=== PATIENT | male | born 1950 | race Caucasian/White ===

== ENCOUNTER 2016-04-27 11:11 | Emergency (ER) ==
[2016-04-27] MEDS ORDERED: NS 250 ML IV ONE (12:01)
--- NOTE | 2016-04-27 12:02 | PROVIDER DOCUMENTATION ---
HPI-General Adult - General Chief Complaint: Fall Stated Complaint: POSS REACTION TO MED Time Seen by Provider: 04/27/16 11:47 Source: patient, family Unable to obtain history due to:: altered Allergies/Adverse Reactions: Patient Allergies Allergy/AdvReac Type Severity Reaction Status Date / Time acetaminophen [From Rumson] Allergy Severe ANAPHYLAXIS Verified 04/27/16 12:05 hydrocodone bitartrate * Allergy Severe ANAPHYLAXIS Verified 04/27/16 12:05 [From Rumson] sulfamethoxazole Allergy Severe swelling;wh Verified 04/27/16 12:05 [From Bactrim] elps trimethoprim [From Bactrim] Allergy Severe swelling;wh Verified 04/27/16 12:05 elps cephalexin monohydrate * Allergy Intermediate SWELLING Verified 04/27/16 12:05 [From Keflex] clindamycin Allergy Unknown Unknown Verified 04/27/16 12:05 Home Medications: Amitriptyline [Elavil] 50 mg PO HS 01/05/14 Gabapentin [Neurontin] 300 mg PO HS 01/05/14 Insulin Glargine,Hum.rec.anlog [Lantus Solostar] 40 unit SQ QHS 01/28/15 Aspirin [Adult Low Dose Aspirin EC] 81 mg PO QAM 02/09/15 Furosemide 40 mg PO QAM 05/29/15 Ticagrelor [Brilinta] 60 mg PO BID 09/16/15 Levothyroxine [Synthroid] 50 microgm PO QAM 03/07/16 Omeprazole [Prilosec] 20 mg PO DAILY@0700 03/07/16 Insulin Lispro [Humalog Kwikpen U-100] 15 unit SQ TID 04/11/16 ATORVAstatin [Lipitor] 40 mg PO QHS 04/27/16 - History of Present Illness -Gen Adult Nature of Presenting Problems: Patient is a 66 y/o M that presents to the ER after having falling at dialysis today. He finished treatment and was advised he fell out and BP dropped. Patient's reports that since Apr.21( placed on Hydrocodone for arthritis by ) patient has had fall and has been having AMS. She reports he has difficulty concentrating. Pain Radiation: reports: no radiation Quality of Pain: reports: none Severity: reports: mild, moderate Onset/Duration: reports: abrupt, just prior to arrival Timing: reports: gone now Context/Activities at Onset: reports: recent trauma history Modifying Factors: improves with: nothing Associated Symptoms: reports: fatigue, joint pain, malaise, weakness, trouble walking, other (AMS). denies: chest pain, constipation, diaphoresis, dizziness , fever/chills, genitourinary problems, heartburn, nausea Recently seen or treated by another doctor?: Yes Review of Systems - Adult - REVIEW OF SYSTEMS - ADULT ROS:: limited per condition Constitutional: reports: fatique. denies: chills, fever Eyes: denies: decreased vision, blurred vision, double vision Ears, Nose, Mouth & Throat: denies: ear discharge, ear pain, sinus problem, throat pain, throat swelling Cardiovascular: denies: chest pain, palpitations, syncope Respiratory: denies: cough, shortness of breath, wheezing Gastrointestinal: denies: abdominal pain, diarrhea, nausea, vomiting Genitourinary: reports: no symptoms reported Musculoskeletal: reports: joint pain. denies: back pain, neck pain Integumentary: reports: no symptoms reported Neurological: reports: other (ams). denies: dizziness/vertigo, headache/ migraines Psychiatric: reports: no symptoms reported Endocrine: reports: no symptoms reported Hematologic/Lymphatic: reports: no symptoms reported Allergic/Immunologic: reports: no symptoms reported All Other Systems: Reviewed and Negative Past History - Adult - PAST MEDICAL HISTORY-ADULT Review of Records: reports: Old Records Reviewed, Nursing Assessment Review, Medications Reviewed Cardiovascular: reports: cardiac disease (cardiac disorder), CHF, HTN, hyperlipidemia, AL Gastrointestinal: reports: cancer (colon), GERD Genitourinary: reports: dialysis, ESRD, kidney disease (ESRD on dialysis M/W/F) Endocrine/Immune: reports: Diabetes, other (diabetic neuropathy) - PRIOR SURGERIES/PROCEDURES Surgical/Procedure History: reports: CABG, cholecystectomy, indwelling device ( colostomy, port a cath), orthopedic (extremity) (R leg Sx, 2 toes amputated from the L leg) - IMMUNIZATION STATUS Childhood Immunizations: See Nurse Assessment Flu Vaccine: See Nurse Assessment - FAMILY HISTORY Family History: reviewed, not pertinent - SOCIAL HISTORY Smoking: quit greater than 1 year, cigarettes Living Situation: family Physical Exam-General - PHYSICAL EXAM-ADULT Initial Vital Signs Reviewed: Yes - CONSTITUTIONAL General Appearance: no apparent distress, lethargic - EYES Eyes: PERRL/EOMI, pink conjunctivae - HEAD, EARS, NOSE, MOUTH & THROAT HENMT: normocephalic/atraumatic, moist mucous membranes, normal ENT inspection - NECK Neck: full range of motion, normal inspection. negative: lymphadenopathy - RESPIRATORY Respiratory: lungs clear, normal breath sounds, no respiratory distress, no accessory muscle use - CARDIOVASCULAR Cardiovascular: regular rate, rhythm, no edema, no murmur - GASTROINTESTINAL (ABDOMEN) Abdominal Exam: normal bowel sounds, non tender, soft, no organomegaly, no pulsatile mass, other (colostomy bag noted) - MUSCULOSKELETAL Back Exam: no CVA tenderness, no vertebral tenderness Extremity: no pedal edema, normal capillary refill, pelvis stable, other (right BKA). negative: calf tenderness, deformity, pedal edema - SKIN Integumentary: normal color, warm/dry - NEUROLOGIC Neurologic: other (abnormal finger to nose). negative: aphasia, facial droop, focal weakness, motor weakness, sensory deficit - PSYCHIATRIC Psych/Mental Status: other (awake, answers questions but has hard time following certain comands. has abnormal movements of arm) Progress - PLAN OF CARE/RESULTS Progress/Plan/Lab Results: plan of care-labs, ct head, xray Vital Signs Temp Pulse Resp BP Pulse Ox 04/27/16 11:19 97.6 F 70 18 91/53 100 acetaminophen [From Rumson] Allergy (Severe, Verified 04/27/16 12:05) ANAPHYLAXIS hydrocodone bitartrate * [From Rumson] Allergy (Severe, Verified 04/27/16 12:05) ANAPHYLAXIS sulfamethoxazole [From Bactrim] Allergy (Severe, Verified 04/27/16 12:05) swelling;whelps trimethoprim [From Bactrim] Allergy (Severe, Verified 04/27/16 12:05) swelling;whelps cephalexin monohydrate * [From Keflex] Allergy (Intermediate, Verified 04/27/16 12:05) SWELLING clindamycin Allergy (Unknown, Verified 04/27/16 12:05) Unknown Amitriptyline [Elavil] 50 mg PO HS 01/05/14 Gabapentin [Neurontin] 300 mg PO HS 01/05/14 Insulin Glargine,Hum.rec.anlog [Lantus Solostar] 40 unit SQ QHS 01/28/15 Aspirin [Adult Low Dose Aspirin EC] 81 mg PO QAM 02/09/15 Furosemide 40 mg PO QAM 05/29/15 Carvedilol [Coreg] 3.125 mg PO BID #60 tablet 06/03/15 Ticagrelor [Brilinta] 60 mg PO BID 09/16/15 Levothyroxine [Synthroid] 50 microgm PO QAM 03/07/16 Omeprazole [Prilosec] 20 mg PO DAILY@0700 03/07/16 Insulin Lispro [Humalog Kwikpen U-100] 15 unit SQ TID 04/11/16 ATORVAstatin [Lipitor] 40 mg PO QHS 04/27/16 Ketorolac [Toradol] 10 mg PO Q6H PRN PRN #15 tablet 04/27/16 Laboratory 04/27/16 04/27/16 11:35 11:35 WBC 5.56 RBC 4.24 L Hgb 13.5 L Hct 39.7 L MCV 93.6 MCH 31.8 H MCHC 34.0 RDW Std Deviation 14.9 H Plt Count 178 MPV 9.8 Neut % (Auto) 67.6 Lymph % (Auto) 14.0 L [place] % (Auto) 16.9 H Eos % (Auto) 1.3 Baso % (Auto) 0.2 Neut # (Auto) 3.76 Lymph # (Auto) 0.78 L [place] # (Auto) 0.94 H Eos # (Auto) 0.07 Baso # (Auto) 0.01 Sodium 129 L Potassium 3.6 Chloride 89 L Carbon Dioxide 20 L Anion Gap 20 BUN 15 Creatinine 2.8 H Estimated GFR/1.73 m2 23 BUN/Creatinine Ratio 5 Glucose 74 Calculated Osmolality 258 Calcium 8.8 Total Bilirubin 0.91 AST 51 H ALT 36 Alkaline Phosphatase 355 H Total Protein 8.0 Albumin 3.7 Globulin 4.3 Albumin/Globulin Ratio 0.9 Orders Category Date Time Status CHEST-2 VIEWS [RAD] Stat Exams 04/27/16 11:59 Taken HEAD W/O CONTRAST [CT] Stat Exams 04/27/16 11:56 Draft CBC WITH ELECTRONIC DIFF [HEME] Stat Lab 04/27/16 11:35 Completed CMP [COMPREHENSIVE METABOLIC PANEL] [CHEM] Stat Lab 04/27/16 11:35 Completed URINALYSIS W/POSS RFLX CULT [URINALYSIS] Stat Lab 04/27/16 11:58 Uncollected 0.9% Sodium Chloride Inj [Ns] 250 ml Med 04/27/16 12:01 Discontinued IV 999 mls/hr pt will be d/c home f/u with , pt will stop hydrocodone, was ok with patient being d/c home pt was clinically stable - CT/MRI 1 CT Study: Head Impression: Abnormal CT Results: no hemorrhage, microvascular changes Departure - Departure Time of Disposition Order: 13:11 DIAGNOSIS: Weakness, Fall, Chronic kidney disease, stage 5, Adverse effects of medication Disposition: HOME 01 Certified Medical Emergency: Emergent Condition: Stable Additional Instructions: stop Hydrocodone f/u with dr. howard this week ED Follow Up Instructions: You have been treated by a care provider in the Emergency Department. These instructions are being provided to you so you can have an understanding of how to care for yourself upon discharge. Upon discharge from the Emergency Department, you are responsible for making arrangements for follow-up care by a physician of your choice. Take all prescribed medications as directed. Return to the Emergency Department immediately for any new or worsening symptoms. You may call the Physician Referral phone number at [phone] to obtain a list of Physicians who are taking new patients. Prescriptions: Ketorolac [Toradol] 10 mg PO Q6H PRN PRN #15 tablet PRN Reason: Pain Referrals: Akosua Howard MD [Primary Care Provider] - Call for Appoint. 1-2days Attestation - Scribe Verification/Attestation Scribe:: Jerry Valladares Acting as Scribe for:: Oni Foster Scribe documention review:: This chart was documented by a scribe and accurately reflects the service the provider performed and the decisions made by the provider. Physician Attestation - Physician Attestation I, the provider, attest to the following statement:: Oni Foster Physician documentation Attestation:: This documentation recorded by the scribe accurately reflects the service I personally performed and the decisions made by me.
[2016-04-27 12:10] LABS: MANUAL DIFF NEEDED? NO
[2016-04-27 12:22] LABS: BASO% 0.2 % (0.0-0.8); EOS# 0.07 X1000 (0.0-0.7); EOS% 1.3 % (0.0-10.0); HEMATOCRIT 39.7 % (42.0-52.0); HEMOGLOBIN 13.5 g/dL (14.0-18.0); LYMPH# 0.78 X1000 (1.2-3.4); MCH 31.8 PG (27-31); MCV 93.6 FL (81-99); MONO# 0.94 X1000 (0.11-0.59); MONO% 16.9 % (1.7-9.3); MPV 9.8 FL (7.4-10.4); NEUT% 67.6 % (42.2-75.2); PLT 178 X1000 (130-400); RBC 4.24 XMIL (4.7-6.1)
[2016-04-27 12:41] LABS: ALBUMIN 3.7 g/dL (3.5-5.0); CALCIUM 8.8 mg/dL (8.8-10.2); POTASSIUM 3.6 mmol/L (3.5-5.1); TOTAL BILIRUBIN 0.91 mg/dL (0.20-1.00)
--- NOTE | 2016-04-27 12:54 | Diag Imaging Result Document ---
PROCEDURE NAME: HEAD W/O CONTRAST - 04/27/2016 CT BRAIN WITHOUT: Dose reduction protocol. FINDINGS: No parenchymal hemorrhage. No epidural or subdural hematoma. No subarachnoid hemorrhage. No hydrocephalus. There are chronic microvascular ischemic changes. The patient has a false right eye. No sinus opacification. IMPRESSION: 1. No hemorrhage. 2. Chronic microvascular ischemic changes. A preliminary report was given at 1233 PM.
[2016-04-27 13:16] VITALS: BP 111/64
--- NOTE | 2016-04-27 13:51 | Diag Imaging Result Document ---
PROCEDURE NAME: CHEST-2 VIEWS - 04/27/2016 AP AND LATERAL CHEST: FINDINGS: The inspiration is less optimal than on 04/10/2016. There is a double lumen dialysis catheter in the right internal jugular with its tip in the right atrium. There may be a mild degree of interstitial pulmonary edema. IMPRESSION: Minimal pulmonary edema.
== END 2016-04-27 13:34 | disposition home or self-care (01) ==
LOC: ED 11:11
DX: T40.2X5A Adverse effect of other opioids, initial encounter (principal); R53.1 Weakness; I12.0 Hypertensive chronic kidney disease with stage 5 chronic kidney disease or end stage renal disease; N18.5 Chronic kidney disease, stage 5; R53.83 Other fatigue; R41.82 Altered mental status, unspecified; I50.9 Heart failure, unspecified; I25.2 Old myocardial infarction; Z79.899 Other long term (current) drug therapy; M25.50 Pain in unspecified joint; E78.5 Hyperlipidemia, unspecified; R53.81 Other malaise; Z99.2 Dependence on renal dialysis; Z85.038 Personal history of other malignant neoplasm of large intestine; K21.9 Gastro-esophageal reflux disease without esophagitis; E13.40 Other specified diabetes mellitus with diabetic neuropathy, unspecified; Z95.1 Presence of aortocoronary bypass graft; Z93.3 Colostomy status; Z89.422 Acquired absence of other left toe(s); Z87.891 Personal history of nicotine dependence; R29.6 Repeated falls; W19.XXXA Unspecified fall, initial encounter; Z79.82 Long term (current) use of aspirin; Z79.4 Long term (current) use of insulin
CPT/HCPCS: 70450; 71020; 80053; 85025; J7040

== ENCOUNTER 2016-06-13 15:38 | Inpatient (IN) ==
[~2016-06-13 15:38] MED LIST: ATROPINE SYRINGE IV ONE
[2016-06-13] MEDS ORDERED: ATROPINE SYRINGE ONE (15:40)
[2016-06-13] MEDS ORDERED: NS 2,000 ML ONE (15:40)
[2016-06-13 16:08] LABS: MANUAL DIFF NEEDED? NO
[2016-06-13 16:13] LABS: BASO% 0.4 % (0.0-0.8); EOS# 0.04 X1000 (0.0-0.7); EOS% 0.7 % (0.0-10.0); HEMATOCRIT 37.1 % (42.0-52.0); HEMOGLOBIN 12.7 g/dL (14.0-18.0); LYMPH# 0.78 X1000 (1.2-3.4); LYMPH% 14.3 % (20.5-51.1); MCHC 34.2 g/dL (33-37); MCV 93.5 FL (81-99); MONO# 0.88 X1000 (0.11-0.59); MONO% 16.1 % (1.7-9.3); MPV 11.4 FL (7.4-10.4); NEUT% 68.5 % (42.2-75.2); PLT 110 X1000 (130-400); RBC 3.97 XMIL (4.7-6.1)
--- NOTE | 2016-06-13 16:34 | PROVIDER DOCUMENTATION ---
HPI-Cardiac General <Jose Edouard - Last Filed: 06/13/16 20:14> - General Source: patient, EMS - History of Present Illness-Cardiac Quality of Pain: reports: none Severity in ED: moderate Onset/Duration: unsure, just prior to arrival Timing: still present Associated Symptoms: reports: fatigue, shortness of breath, weakness. denies: abdominal pain, back pain, diaphoresis, dizziness, nausea, swelling/lump in chest, syncope (near-syncope), vomiting <Haim Nielsen - Last Filed: 06/13/16 20:44> - General Chief Complaint: B/P Problems Stated Complaint: low bp Time Seen by Provider: 06/13/16 16:02 Allergies/Adverse Reactions: Patient Allergies Allergy/AdvReac Type Severity Reaction Status Date / Time acetaminophen [From [facility]] Allergy Severe ANAPHYLAXIS Verified 05/31/16 20:17 hydrocodone bitartrate * Allergy Severe ANAPHYLAXIS Verified 05/31/16 20:17 [From [place]] sulfamethoxazole Allergy Severe swelling;wh Verified 05/31/16 20:17 [From Bactrim] elps trimethoprim [From Bactrim] Allergy Severe swelling;wh Verified 05/31/16 20:17 elps cephalexin monohydrate * Allergy Intermediate SWELLING Verified 05/31/16 20:17 [From Keflex] clindamycin Allergy Unknown Unknown Verified 05/31/16 20:17 Home Medications: Home Medication List Medication Instructions Recorded Confirmed Last Taken Type Amitriptyline [Elavil] 50 mg PO HS 01/05/14 06/13/16 06/12/16 19:00 History 50 MG Gabapentin [Neurontin] 300 mg PO 01/05/14 06/13/16 06/12/16 19:00 History 300 MG Aspirin [Adult Low Dose Aspirin EC] 81 mg PO QAM 02/09/15 06/13/16 06/13/16 10: 00 History 81 MG Carvedilol [Coreg] 3.125 mg PO BID #60 tablet 06/03/15 06/13/16 06/13/16 10:00 Rx 3.125 MG Ticagrelor [Brilinta] 60 mg PO BID 09/16/15 06/13/16 06/13/16 10:00 History 60 MG Levothyroxine [Synthroid] 50 microgm PO QAM 03/07/16 06/13/16 06/13/16 10:00 History 50 MICROGM Omeprazole [Prilosec] 20 mg PO DAILY@0700 03/07/16 06/13/16 06/13/16 10:00 History 20 MG ATORVAstatin [Lipitor] 40 mg PO QHS 04/27/16 06/13/16 06/12/16 19:00 History 40 MG Colchicine [Colcrys] 0.6 mg PO DAILY #30 tablet 05/08/16 06/13/16 06/13/16 10: 00 Rx 0.6 MG Tramadol HCl [Ultram] 50 mg PO BID 05/31/16 06/13/16 06/13/16 10:00 History 50 MG Insulin Glargine,Hum.rec.anlog 30 unit SQ QHS #0 06/08/16 06/13/16 06/12/16 19: 00 Rx [Lantus Solostar] 30 UNIT Insulin Lispro [Humalog Kwikpen 12 unit SQ TID #0 06/08/16 06/13/16 06/13/16 10 :00 Rx U-100] 12 UNIT Metoclopramide [Reglan Liquid] 10 mg PO TID AC #90 udc 06/08/16 06/13/16 10:00 Rx 10 MG - History of Present Illness-Cardiac Nature of Presenting Problem: Pt is a 66 yom who presents to ER via EMS from [facility]. Per EMS , pt was reported to be hypotensive, bradycardic, and severely lethargic at the retirement. On arrival, pt was still hypotensive (89/57), bradycardic, and lethargic. (Haim Nielsen) Review of Systems - Adult - REVIEW OF SYSTEMS - ADULT Constitutional: reports: fatique. denies: chills, fever, night sweats Eyes: reports: no symptoms reported Ears, Nose, Mouth & Throat: reports: no symptoms reported Cardiovascular: reports: irregular heart rate (bradycardic), other (hypotensive (89/57)). denies: chest pain, edema, heart murmur, orthopnea, palpitations, poor circulation, PND, syncope (near syncope) Respiratory: denies: chronic cough, cough, dyspnea on exertion, excessive sputum production, hemoptysis, pleurisy, shortness of breath, wheezing Gastrointestinal: denies: abdominal pain, constipation, diarrhea, nausea, poor appetite, vomiting Genitourinary: reports: no symptoms reported Musculoskeletal: reports: no symptoms reported Integumentary: reports: no symptoms reported Neurological: reports: no symptoms reported Psychiatric: reports: no symptoms reported Endocrine: reports: no symptoms reported Hematologic/Lymphatic: reports: no symptoms reported Allergic/Immunologic: reports: no symptoms reported All Other Systems: Reviewed and Negative <Haim Nielsen - Last Filed: 06/13/16 20:44> Past History - Adult - PAST MEDICAL HISTORY-ADULT Review of Records: reports: Nursing Assessment Review, Medications Reviewed Cardiovascular: reports: cardiac disease (cardiac disorder), CHF, HTN, hyperlipidemia, AK Gastrointestinal: reports: cancer (colon), GERD Genitourinary: reports: dialysis, ESRD, kidney disease (ESRD on dialysis M/W/F) Endocrine/Immune: reports: Diabetes, other (diabetic neuropathy) - PRIOR SURGERIES/PROCEDURES Surgical/Procedure History: reports: CABG, cholecystectomy, indwelling device ( colostomy, port a cath), orthopedic (extremity) (R leg Sx, 2 toes amputated from the L leg) - IMMUNIZATION STATUS Childhood Immunizations: See Nurse Assessment Flu Vaccine: See Nurse Assessment <Haim Nielsen - Last Filed: 06/13/16 20:44> Physical Exam-General - PHYSICAL EXAM-ADULT Initial Vital Signs Reviewed: Yes - CONSTITUTIONAL General Appearance: appears well, alert, moderate distress, lethargic, slow to respond, obtunded. negative: cachetic, obese, combative - RESPIRATORY Respiratory: chest non-tender, lungs clear, normal breath sounds. negative: respiratory distress, decreased breath sounds, accessory muscle use, wheezing - CARDIOVASCULAR Cardiovascular: normal peripheral pulses, bradycardia, other (hypotensive (89/57 )). negative: tachycardia - MUSCULOSKELETAL Extremity: other (amputated RLE below the knee). negative: swelling, tenderness - NEUROLOGIC Neurologic: grossly normal, no motor/sensory deficits - PSYCHIATRIC Psych/Mental Status: normal thought content, normal thought process, oriented x 3, depressed affect <Haim Nielsen - Last Filed: 06/13/16 20:44> Progress <Jose Edouard - Last Filed: 06/13/16 20:14> - REASSESSMENT Reassessment #1 Time Reassessed: 18:32 Status: other (Dr. Edouard reassessed pt and family reports that pt is DNR. Pt will be admitted.) Reassessment #2 Time Reassessed: 19:58 Status: other (Family is at bedside and requested consult with Dr. Edouard as to what pt's current POC situation is.) - EKG 1 Time of EKG reading by physician:: 16:12 EKG Read and Signed by:: Harish Menchaca EKG Interpretation (*Must complete 3 of following elements*): Abnormal ( Nonspecific intraventricular block; Cannot rule out Anterior infarct, age undetermined; T wave abnornmality, consider lateral ischemia) Rate: 51 Rhythm: Wide QRS rhythm - CT/MRI 1 CT Study: Head Impression: See EMR Report CT Results: NAD - CONSULTS/PCP/HOSPITALIST Notification #1 *Consult/PCP/Hospitalist*: Dr. Chin (Hospitalist) Time Discussed: 20:44 Consult Disposition: Admit - CHANGE OF SHIFT REPORT (ED Provider) Report Given and Care Transferred to:: Dr. Edouard Time of Transfer: 18:00 Items Pending: Ultrasound Results <Haim Nielsen - Last Filed: 06/13/16 20:44> - PLAN OF CARE/RESULTS Progress/Plan/Lab Results: POC: IV fluids/labs 1710: Pt's labs came back and indicated elevated liver enzymes; Ultrasound paged for abnormal liver functions. 1755: Dr. Menchaca ordered another litre of fluid for pt because pt's B/P (87/63) . POC transferred to Dr. Edouard. 1832: Pt's family reports that pt is DNR. Dr. Edouard paged hospitalist for admit. Vital Signs - 24 hr 06/13/16 06/13/16 06/13/16 15:52 16:00 16:29 Temperature 97.2 F L Pulse Rate 55 L 54 L 53 L Respiratory 14 13 14 Rate Blood Pressure 85/64 89/57 93/52 O2 Sat by Pulse 96 97 97 Oximetry 06/13/16 06/13/16 06/13/16 17:00 18:00 18:39 Temperature Pulse Rate 51 L 50 L 49 L Respiratory 20 20 20 Rate Blood Pressure 78/48 89/55 84/50 O2 Sat by Pulse 96 92 L 94 L Oximetry 06/13/16 19:42 Temperature Pulse Rate 49 L Respiratory 16 Rate Blood Pressure 92/58 O2 Sat by Pulse 94 L Oximetry Orders Category Date Time Status Cardiac Monitoring DIRECTED Care 06/13/16 16:23 Active Finger Stick Blood Sugar (ED) DIRECTED Care 06/13/16 16:23 Active Claros Cath Insertion ORDERED Care 06/13/16 17:43 Active Oxygen Therapy- ED Nursing DIRECTED Care 06/13/16 16:23 Active Saline Loc NOW Care 06/13/16 16:23 Active HEAD W/O CONTRAST [CT] Stat Exams 06/13/16 16:29 Draft US ABDOMEN-COMPLETE [US] Stat Exams 06/13/16 17:09 Ordered ABG [RESP] Routine Lab 06/13/16 16:40 Completed ALCOHOL BLOOD Stat Lab 06/13/16 15:45 Completed CBC WITH DIFF [HEME] Stat Lab 06/13/16 15:45 Completed CK PROFILE [SP CHEM] Stat Lab 06/13/16 15:45 Completed CK PROFILE [SP CHEM] Stat Lab 06/13/16 18:20 Completed COMPREHENSIVE METABOLIC PANEL [CHEM] Stat Lab 06/13/16 15:45 Completed LACTATE, PLASMA [CHEM] Stat Lab 06/13/16 15:45 Completed PROTIME WITH INR [COAG] Stat Lab 06/13/16 15:45 Completed PTT [COAG] Stat Lab 06/13/16 15:45 Completed TROPONIN T Stat Lab 06/13/16 15:45 Completed TROPONIN T Stat Lab 06/13/16 18:20 Completed URINALYSIS W/POSS RFLX CULT [URINALYSIS] Stat Lab 06/13/16 17:50 Completed URINE CULTURE [RM] Routine Lab 06/13/16 19:12 Received URINE DRUG SCREEN Stat Lab 06/13/16 17:50 Completed URINE MANUAL MICROSCOPIC [URINALYSIS] Stat Lab 06/13/16 17:50 Completed 0.9% Sodium Chloride Inj [Ns] 1,000 ml Med 06/13/16 15:40 Discontinued .ROUTE As Directed 0.9% Sodium Chloride Inj [Ns] 1,000 ml Med 06/13/16 17:56 Discontinued IV 999 mls/hr 0.9% Sodium Chloride Inj [Ns] 1,000 ml Med 06/13/16 18:28 Discontinued IV 999 mls/hr Atropine Syringe Med 06/13/16 15:40 Discontinued 1 mg .ROUTE .STK-MED ONE Atropine Syringe Med 06/13/16 15:38 Discontinued 1 mg IV NOW ONE Pulse Oximetry Stat Oth 06/13/16 16:23 Completed EKG [EKG] Stat Ther 06/13/16 16:23 Ordered Laboratory Tests 06/13/16 06/13/16 06/13/16 15:45 15:45 15:45 WBC 5.46 RBC 3.97 L Hgb 12.7 L Hct 37.1 L MCV 93.5 MCH 32.0 H MCHC 34.2 RDW Std Deviation 18.2 H Plt Count 110 L MPV 11.4 H Immature Gran % (Auto) 0.0 Neut % (Auto) 68.5 Lymph % (Auto) 14.[address] [place] % (Auto) 16.1 H Eos % (Auto) 0.7 Baso % (Auto) 0.4 Immature Gran # (Auto) 0.00 Neut # (Auto) 3.74 Lymph # (Auto) 0.[address] [place] # (Auto) 0.88 H Eos # (Auto) 0.04 Baso # (Auto) 0.02 PT INR PTT (Actin FS) Specimen Type Sample Site pH pCO2 pO2 HCO3 Base Excess Oxyhemoglobin ABG O2 Sat (Calculated) ABG O2 Saturation ABG Carboxyhemoglobin ABG Methemoglobin Emerson Test A-a O2 Difference Total Hemoglobin Lactate Blood Gas Modality FiO2 % Sodium 122 L Potassium 5.2 H Chloride 86 L Carbon Dioxide 19 L Anion Gap 17 BUN 36 H Creatinine 5.8 H Estimated GFR/1.73 m2 10 BUN/Creatinine Ratio 6 Glucose 117 H Calculated Osmolality 255 Calcium 9.1 Total Bilirubin 1.52 H AST 57 H ALT 27 Alkaline Phosphatase 309 H Creatine Kinase Creatine Kinase Index CK-MB (CK-2) Troponin T Total Protein 6.9 Albumin 2.7 L Globulin 4.2 Albumin/Globulin Ratio 0.6 Plasma Lactate 2.1 Urine Source Urine Color Urine Turbidity Urine pH Ur Specific Dale Urine Protein Ur Glucose (Stick) Ur Ketones (Stick) Urine Blood Urine Nitrite Urine Bilirubin Urobilinogen Dipstick Urine Leukocytes Urine WBC (Auto) Urine RBC (Auto) U Epithel Cells (Auto) Urine Bacteria (Auto) Urine Crystals Small Round Cells Urine Casts Urine Yeast-like Cells Urine Opiates Screen Ur Oxycodone Screen Ur Methadone, Qual Ur Barbiturates Screen Ur Phencyclidine Scrn Ur Amphetamines Screen U Benzodiazepines Scrn Urine Cocaine Screen U Cannabinoids Screen Plasma/Serum Ethyl Alc 06/13/16 06/13/16 06/13/16 15:45 15:45 15:45 WBC RBC Hgb Hct MCV MCH MCHC RDW Std Deviation Plt Count MPV Immature Gran % (Auto) Neut % (Auto) Lymph % (Auto) [place] % (Auto) Eos % (Auto) Baso % (Auto) Immature Gran # (Auto) Neut # (Auto) Lymph # (Auto) [place] # (Auto) Eos # (Auto) Baso # (Auto) PT 12.6 H INR 1.19 PTT (Actin FS) 37.5 H Specimen Type Sample Site pH pCO2 pO2 HCO3 Base Excess Oxyhemoglobin ABG O2 Sat (Calculated) ABG O2 Saturation ABG Carboxyhemoglobin ABG Methemoglobin Emerson Test A-a O2 Difference Total Hemoglobin Lactate Blood Gas Modality FiO2 % Sodium Potassium Chloride Carbon Dioxide Anion Gap BUN Creatinine Estimated GFR/1.73 m2 BUN/Creatinine Ratio Glucose Calculated Osmolality Calcium Total Bilirubin AST ALT Alkaline Phosphatase Creatine Kinase 298 H Creatine Kinase Index 3.6 H CK-MB (CK-2) 10.75 H Troponin T Total Protein Albumin Globulin Albumin/Globulin Ratio Plasma Lactate Urine Source Urine Color Urine Turbidity Urine pH Ur Specific Dale Urine Protein Ur Glucose (Stick) Ur Ketones (Stick) Urine Blood Urine Nitrite Urine Bilirubin Urobilinogen Dipstick Urine Leukocytes Urine WBC (Auto) Urine RBC (Auto) U Epithel Cells (Auto) Urine Bacteria (Auto) Urine Crystals Small Round Cells Urine Casts Urine Yeast-like Cells Urine Opiates Screen Ur Oxycodone Screen Ur Methadone, Qual Ur Barbiturates Screen Ur Phencyclidine Scrn Ur Amphetamines Screen U Benzodiazepines Scrn Urine Cocaine Screen U Cannabinoids Screen Plasma/Serum Ethyl Alc 06/13/16 06/13/16 06/13/16 15:45 16:40 17:50 WBC RBC Hgb Hct MCV MCH MCHC RDW Std Deviation Plt Count MPV Immature Gran % (Auto) Neut % (Auto) Lymph % (Auto) [place] % (Auto) Eos % (Auto) Baso % (Auto) Immature Gran # (Auto) Neut # (Auto) Lymph # (Auto) [place] # (Auto) Eos # (Auto) Baso # (Auto) PT INR PTT (Actin FS) Specimen Type ARTERIAL Sample Site L BRACHIAL pH 7.39 pCO2 32 L pO2 99 HCO3 21.2 Base Excess -4.7 L Oxyhemoglobin 95.7 ABG O2 Sat (Calculated) 16.5 ABG O2 Saturation 99.1 ABG Carboxyhemoglobin 2.10 ABG Methemoglobin 1.4 Emerson Test NO A-a O2 Difference 11.0 Total Hemoglobin 12.2 Lactate 1.20 Blood Gas Modality ROOM AIR FiO2 % 21.0 Sodium Potassium Chloride Carbon Dioxide Anion Gap BUN Creatinine Estimated GFR/1.73 m2 BUN/Creatinine Ratio Glucose Calculated Osmolality Calcium Total Bilirubin AST ALT Alkaline Phosphatase Creatine Kinase Creatine Kinase Index CK-MB (CK-2) Troponin T 0.914 H* Total Protein Albumin Globulin Albumin/Globulin Ratio Plasma Lactate Urine Source CATH Urine Color YELLOW Urine Turbidity TURBID Urine pH 6.0 Ur Specific Dale 1.014 Urine Protein 100 A Ur Glucose (Stick) NEGATIVE Ur Ketones (Stick) NEGATIVE Urine Blood MODERATE A Urine Nitrite NEGATIVE Urine Bilirubin NEGATIVE Urobilinogen Dipstick NORMAL Urine Leukocytes LARGE A Urine WBC (Auto) TNTC A Urine RBC (Auto) TNTC A U Epithel Cells (Auto) <10 Urine Bacteria (Auto) NEGATIVE Urine Crystals Not Reportable Small Round Cells Not Reportable Urine Casts Not Reportable Urine Yeast-like Cells PRESENT Urine Opiates Screen Ur Oxycodone Screen Ur Methadone, Qual Ur Barbiturates Screen Ur Phencyclidine Scrn Ur Amphetamines Screen U Benzodiazepines Scrn Urine Cocaine Screen U Cannabinoids Screen Plasma/Serum Ethyl Alc 06/13/16 06/13/16 06/13/16 17:50 18:20 18:20 WBC RBC Hgb Hct MCV MCH MCHC RDW Std Deviation Plt Count MPV Immature Gran % (Auto) Neut % (Auto) Lymph % (Auto) [place] % (Auto) Eos % (Auto) Baso % (Auto) Immature Gran # (Auto) Neut # (Auto) Lymph # (Auto) [place] # (Auto) Eos # (Auto) Baso # (Auto) PT INR PTT (Actin FS) Specimen Type Sample Site pH pCO2 pO2 HCO3 Base Excess Oxyhemoglobin ABG O2 Sat (Calculated) ABG O2 Saturation ABG Carboxyhemoglobin ABG Methemoglobin Emerson Test A-a O2 Difference Total Hemoglobin Lactate Blood Gas Modality FiO2 % Sodium Potassium Chloride Carbon Dioxide Anion Gap BUN Creatinine Estimated GFR/1.73 m2 BUN/Creatinine Ratio Glucose Calculated Osmolality Calcium Total Bilirubin AST ALT Alkaline Phosphatase Creatine Kinase 275 H Creatine Kinase Index 3.6 H CK-MB (CK-2) 9.94 H Troponin T 0.814 H* Total Protein Albumin Globulin Albumin/Globulin Ratio Plasma Lactate Urine Source Urine Color Urine Turbidity Urine pH Ur Specific Dale Urine Protein Ur Glucose (Stick) Ur Ketones (Stick) Urine Blood Urine Nitrite Urine Bilirubin Urobilinogen Dipstick Urine Leukocytes Urine WBC (Auto) Urine RBC (Auto) U Epithel Cells (Auto) Urine Bacteria (Auto) Urine Crystals Small Round Cells Urine Casts Urine Yeast-like Cells Urine Opiates Screen NONE DETECTED Ur Oxycodone Screen NONE DETECTED Ur Methadone, Qual NONE DETECTED Ur Barbiturates Screen NONE DETECTED Ur Phencyclidine Scrn NONE DETECTED Ur Amphetamines Screen NONE DETECTED U Benzodiazepines Scrn NONE DETECTED Urine Cocaine Screen NONE DETECTED U Cannabinoids Screen NONE DETECTED Plasma/Serum Ethyl Alc (Haim Nielsen) Departure - Departure Time of Disposition Order: 20:15 Certified Medical Emergency: Emergent <Jose Edouard - Last Filed: 06/13/16 20:14> - Departure Time of Disposition Order: 20:38 Certified Medical Emergency: Emergent <Haim Nielsen - Last Filed: 06/13/16 20:44> - Departure DIAGNOSIS: NSTEMI (non-ST elevated myocardial infarction), ESRD (end stage renal disease) UTI (urinary tract infection) Qualifiers: Urinary tract infection type: site unspecified Hematuria presence: with hematuria Qualified Code(s): N39.0 - Urinary tract infection, site not specified Disposition: ADMITTED INPATIENT 09 Condition: Fair Referrals: None,PCP [Primary Care Provider] - Attestation - Scribe Verification/Attestation Scribe:: Haim Nielsen Acting as Scribe for:: Harish Menchaca Scribe documention review:: This chart was documented by a scribe and accurately reflects the service the provider performed and the decisions made by the provider. - Scribe Verification/Attestation #2 Shift Change Time: 18:00 Scribe Name: Haim Nielsen Acting as Scribe for:: Jose Edouard <Haim Nielsen - Last Filed: 06/13/16 20:44> Physician Attestation
[2016-06-13 16:44] LABS: ALBUMIN 2.7 g/dL (3.5-5.0); CALCIUM 9.1 mg/dL (8.8-10.2); POTASSIUM 5.2 mmol/L (3.5-5.1); TOTAL BILIRUBIN 1.52 mg/dL (0.20-1.00); TOTAL PROTEIN 6.9 g/dL (6.3-8.3)
[2016-06-13 16:48] LABS: ALLEN TEST NO; BE -4.7 mmoll (-3.0-3.0); BLOOD TYPE ARTERIAL; DRAW SITE L BRACHIAL; METHB 1.4 % (0.0-1.5); O2(CT) 16.5 mL/dL (15.0-23.0); PCO2(98.6) 32 mmHg (35-45); PO2(98.6) 99 mmHg (60-100); SAMPLE BLOOD; SAO2 99.1 % (95.0-100.0); THB 12.2 g/dL (11.5-17.4); pH(98.6) 7.39 (7.35-7.45)
[2016-06-13 16:49] LABS: MODALITY ROOM AIR
[2016-06-13 17:35] LABS: INR 1.19; PROTIME 12.6 Seconds (9.2-11.7); PTT 37.5 Seconds (22.0-36.0)
[2016-06-13 17:54] LABS: CK INDEX 3.6 (0.0-2.5); CK-MB 10.75 ng/mL (0.0-5.0)
[2016-06-13] MEDS ORDERED: NS 1,000 ML IV ONE ×2 (17:56→18:28)
[2016-06-13 18:09] LABS: URINE SOURCE CATH
[2016-06-13 18:20] LABS: BILIRUBIN URINE NEGATIVE (NEGATIVE); BLOOD URINE MODERATE (NEGATIVE); COLOR YELLOW; GLUCOSE URINE NEGATIVE (NEGATIVE); LEUKOCYTES URINE LARGE (NEGATIVE); NITRITE URINE NEGATIVE (NEGATIVE); PROTEIN URINE 100 mg/dL (NEGATIVE); SP GRAVITY URINE 1.014; TURBIDITY URINE TURBID (CLEAR); UROBILINOGEN URINE NORMAL (NORMAL)
[2016-06-13 18:22] LABS: URINE MICRO REVIEW NEEDED? YES
[2016-06-13 18:40] LABS: UR EPITHELIAL CELLS <10 /HPF (<10); URINE BACTERIA NEGATIVE /HPF; URINE CULTURE NEEDED? YES; URINE RBC TNTC /HPF (<10); URINE WBC TNTC /HPF (<10)
--- NOTE | 2016-06-13 18:46 | Diag Imaging Result Document ---
PROCEDURE NAME: HEAD W/O CONTRAST - 06/13/2016 CT OF THE HEAD WITHOUT CONTRAST: FINDINGS: There are calcifications in the vertebral and internal carotid arteries. There is generalized mild cerebral atrophy. No masses or abnormal fluid collections are present and there is no evidence of bleeding. Compared to 05/31/2016, there has been no significant change in the appearance of the brain. IMPRESSION: Stable CT of the head.
[2016-06-13 18:47] LABS: UR AMPHETAMINES QUAL NONE DETECTED (NONE DETECT); UR BARBITUATES QUAL NONE DETECTED (NONE DETECT); UR BENZODIAZEPIN QUAL NONE DETECTED (NONE DETECT); UR CANNABINOIDS QUAL NONE DETECTED (NONE DETECT); UR COCAINE QUAL NONE DETECTED (NONE DETECT); UR METHADONE QUAL NONE DETECTED (NONE DETECT); UR OPIATES QUAL NONE DETECTED (NONE DETECT); UR OXYCODONE QUAL NONE DETECTED (NONE DETECT); UR PCP QUAL NONE DETECTED (NONE DETECT)
[2016-06-13 19:24] LABS: CK INDEX 3.6 (0.0-2.5); CK-MB 9.94 ng/mL (0.0-5.0)
[2016-06-13] MEDS ORDERED: LEVAQUIN 750 MG/D5W 150 ML IV ONE (20:17)
--- NOTE | 2016-06-13 22:34 | HISTORY AND PHYSICAL ---
PRIMARY CARE PHYSICIAN: Dr. Howard CHIEF COMPLAINT: Altered mental status. HISTORY OF PRESENT ILLNESS: This is a 66-year-old male with extensive past medical history of congestive heart failure, ischemic cardiomyopathy, chronic atrial fibrillation, diabetes who was sent from with [facility]. Per EMS team patient was reported to be confused, hypotensive and bradycardic at that facility and also severe lethargic so he was sent over here. Upon arrival the blood pressure was 89/55, he was bradycardic. Patient was provided IV fluids and labs showed UTIs. Also EKG showed ST-elevation in V1, V2 and V3 with positive troponins. ER physician Dr. Ibrahim talked with the family. Apparently they do not want to have any aggressive procedure on this patient, they did not agree to transfer this patient to hospital for this problem and they prefer to keeping here comfortable. Patient was recently discharged from this facility 5 days ago. By now he denies any chest pain, any difficulty breathing, nausea vomiting. He reports mild pain in left wrist and also in the hip. Patient apparently was discharged on hospice. By now was mentioned family prefer to provide just conservative treatment for his condition in this case for this acute AK and keeping comfortable as well. PAST MEDICAL HISTORY: 1. Chronic systolic and diastolic congestive heart failure 2. Ischemic cardiomyopathy. 3. Chronic atrial fibrillation. 4. Diabetes type 2. 5. Hypertension. 6. Dyslipidemia. 7. End-stage renal disease on hemodialysis. 8. Osteoarthritis . 9. Recent diagnosis rectal cancer. 10. Sleep apnea. PAST SURGICAL HISTORY: 1. Recent partial colectomy with colostomy bag placement. 2. Right-sided [id number] amputation. 3. Coronary artery bypass. 4. Cholecystectomy. 5. 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 SOCIAL HISTORY: Patient denies smoking, drinking alcohol or using illicit drugs. Patient is retired and came from [facility] rehab facility. FAMILY HISTORY: Father from pancreatic cancer. ALLERGIES: Patient is allergic to [place], Bactrim, Keflex and clindamycin. REVIEW OF SYSTEMS: Eleven systems were reviewed and all symptoms related to H and P. PHYSICAL EXAMINATION: VITALS: Temperature 97.2 degrees, heart rate 51, respiratory rate 16, blood pressure 105/71 but upon arrival was 78/48, O2 saturation 94% on room air. GENERAL EXAMINATION: This is a chronically ill looking 66-year-old male lying in bed in no acute distress. HEENT: Head is normocephalic, atraumatic. Anicteric sclerae and pale conjunctivae. Mucous membranes moist. NECK: Supple. No JVD noted. No carotid bruits. No lymphadenopathy. No thyromegaly. CARDIOVASCULAR: S1 and S2 heard. No murmurs, gallops, rubs. Regular rate and rhythm. RESPIRATORY: Clear bilaterally to auscultation. No work of breathing or using accessory muscles. ABDOMEN: Soft, nontender to palpation. Nondistended. Bowel sounds present. No organomegaly. EXTREMITIES: Right [id number] amputation noted. NEUROLOGICAL: Patient is awake and oriented, moves 4 extremities. LABORATORY DATA: White cell count 5.46, hemoglobin 12.7, hematocrit 37.1, platelets 110,000. ABG shows pH 7.39, pCO2 32, PO2 99. Sodium 132, potassium 5.2, chloride 86, bicarbonate 19, BUN 36, creatinine 5.8, ALT 57, AST 27, troponin 0.8. Urinalysis shows too numerous to count white cell counts. ASSESSMENT AND PLAN: 1. ST elevation myocardial infarction. 2. Urinary tract infection. 3. Chronic diastolic and systolic heart failure. 4. Hypertension. 5. Diabetes. 6. Hyperlipidemia. PLAN: Patient is admitted to hospital for an episode of altered mental status and upon ER evaluation he was found to have an ST elevation myocardial infarction, UTI and altered mental status has resolved. The family has stated clearly that they do no want to have any aggressive procedure on this patient. The patient is DNR, DNI level 1 and also patient prefers to have just conservative treatment only. Will honor definitely the wishes. Regarding AK definitely will treat pain just in case. Upon my examination patient was not hurting. Because of his current treatment we are going to continue basically with the beta-blockers and also he already has been taking Brilinta and aspirin. We are going to continue with the same management. I do not think I need to use heparin on his case. For end-stage renal disease on hemodialysis we are going to consult Dr. Medina to continue with this treatment. He is due for hemodialysis next Wednesday. For low blood pressure definitely secondary to this acute AK and we are going to provide just gentle hydration with normal saline at 75 mL/hours. Because they do not want to have any acute procedures I prefer to just have an input from Cardiology regarding what other treatment we can provide to him besides of course left heart catheterization and stenting. Then because this patient is able to eat and his mental status is okay we are going to restart diet and also his usual insulin treatment. Further recommendations to follow according to the clinical situation of the patient. MTDD
[2016-06-14] MEDS ORDERED: ZOFRAN IV PRN (00:12)
[2016-06-14] MEDS ORDERED: LEVAQUIN 250 MG in NS 50 ML IV SCH (00:12)
[2016-06-14] MEDS ORDERED: NS 1,000 ML IV SCH (00:12)
[2016-06-14] MEDS ORDERED: LEVAQUIN 250 MG/D5W 50 ML IV SCH ×2 (01:00→21:00)
[2016-06-14] MEDS: DILAUDID IV PRN ×2 (01:02→14:31)
[2016-06-14 06:42] LABS: MANUAL DIFF NEEDED? NO
[2016-06-14 06:49] LABS: BASO% 0.2 % (0.0-0.8); EOS# 0.09 X1000 (0.0-0.7); EOS% 1.7 % (0.0-10.0); HEMATOCRIT 35.1 % (42.0-52.0); HEMOGLOBIN 11.9 g/dL (14.0-18.0); LYMPH% 17.4 % (20.5-51.1); MCH 31.9 PG (27-31); MCHC 33.9 g/dL (33-37); MCV 94.1 FL (81-99); MONO# 0.89 X1000 (0.11-0.59); MONO% 17.2 % (1.7-9.3); NEUT% 63.5 % (42.2-75.2); PLT 108 X1000 (130-400); RBC 3.73 XMIL (4.7-6.1)
[2016-06-14] MEDS: REGLAN LIQUID PO SCH ×3 (06:52→16:58)
[2016-06-14] MEDS: D50W SYRINGE IV PRN (06:53)
[2016-06-14 07:12] LABS: CALCIUM 8.8 mg/dL (8.8-10.2); POTASSIUM 5.7 mmol/L (3.5-5.1)
--- NOTE | 2016-06-14 08:08 | Diag Imaging Result Document ---
PROCEDURE NAME: US ABDOMEN-COMPLETE - 06/13/2016 ABDOMINAL ULTRASOUND: FINDINGS: This study is markedly technically suboptimal due to the patient's body habitus and clinical condition. The pancreas and most of the inferior vena cava and aorta are obscured. The right kidney is atrophic in appearance measuring only 7.3 cm in length. It is hyperechoic. The left kidney is not well seen. The spleen is not enlarged. The gallbladder is surgically absent. There are granulomata in the liver and spleen. There is an apparent right pleural effusion. There is very sluggish, if any, antegrade flow in the portal vein. No evidence of ascites is present. IMPRESSION: Limited study. Right renal atrophy. Sluggish portal flow.
[2016-06-14] MEDS ORDERED: TICAGRELOR PO SCH (09:00)
[2016-06-14] MEDS ORDERED: TICAGRELOR 60 MG PO SCH (09:00)
[2016-06-14] MEDS: ULTRAM PO SCH ×2 (10:03→20:30)
[2016-06-14] MEDS: SYNTHROID PO SCH (10:04)
[2016-06-14] MEDS: TICAGRELOR PO SCH ×2 (10:04→20:31)
[2016-06-14] MEDS: ASPIRIN EC PO SCH (10:04)
[2016-06-14] MEDS: COREG PO SCH ×2 (10:04→20:30)
[2016-06-14] MEDS: NS 1,000 ML IV SCH ×2 (10:05→16:58)
[2016-06-14] MEDS: NEURONTIN PO SCH (20:30)
[2016-06-14] MEDS: LIPITOR PO SCH (20:30)
[2016-06-14] MEDS: ELAVIL PO SCH (20:31)
[2016-06-14] MEDS: LANTUS SUBQ SCH (23:01)
[2016-06-15 05:52] LABS: MANUAL DIFF NEEDED? NO
[2016-06-15 06:27] LABS: BASO% 0.3 % (0.0-0.8); EOS# 0.03 X1000 (0.0-0.7); EOS% 0.5 % (0.0-10.0); HEMATOCRIT 36.5 % (42.0-52.0); HEMOGLOBIN 12.3 g/dL (14.0-18.0); IMM GRAN# 0.02 X1000 (0.0-0.04); IMM GRAN% 0.3 % (0.0-0.5); LYMPH# 0.91 X1000 (1.2-3.4); MCH 31.8 PG (27-31); MCHC 33.7 g/dL (33-37); MCV 94.3 FL (81-99); MONO# 1.05 X1000 (0.11-0.59); MONO% 16.2 % (1.7-9.3); NEUT% 68.7 % (42.2-75.2); PLT 125 X1000 (130-400); RBC 3.87 XMIL (4.7-6.1)
[2016-06-15] MEDS: SYNTHROID PO SCH (06:32)
[2016-06-15] MEDS: REGLAN LIQUID PO SCH ×3 (06:32→17:41)
[2016-06-15] MEDS: NS 1,000 ML IV SCH (06:35)
[2016-06-15 07:23] LABS: POTASSIUM 6.2 mmol/L (3.5-5.1)
[2016-06-15 07:24] LABS: ALBUMIN 2.6 g/dL (3.5-5.0); CALCIUM 8.7 mg/dL (8.8-10.2); MAGNESIUM 1.7 mg/dL (1.5-2.7); TOTAL BILIRUBIN 1.62 mg/dL (0.20-1.00); TOTAL PROTEIN 6.9 g/dL (6.3-8.3)
--- NOTE | 2016-06-15 07:51 | EKG Report ---
Test Performed on : 06/13/2016 4:12:15 PM Test Reason : AMS Blood Pressure : / mmHG Vent. Rate : 051 BPM Atrial Rate : 037 BPM P-R Int : 000 ms QRS Dur : 134 ms QT Int : 504 ms P-R-T Axes : 000 -07 170 degrees QTc Int : 464 ms Wide QRS rhythm. Nonspecific intraventricular block Cannot rule out Anterior infarct , age undetermined T wave abnormality, consider inferolateral ischemia Abnormal ECG When compared with ECG of 01-JUN-2016 05:10, No significant change was found Unconfirmed Result
[2016-06-15] MEDS ORDERED: NS 2,000 ML ONE (07:59)
[2016-06-15] MEDS ORDERED: HEPARIN ONE (07:59)
[2016-06-15] MEDS ORDERED: TIGHT: 0.2 ML/HR MISC PRN (08:01)
[2016-06-15] MEDS ORDERED: NS 2,000 ML MISC PRN (08:01)
[2016-06-15] MEDS ORDERED: HEPARIN IV PRN (08:01)
--- NOTE | 2016-06-15 09:16 | PROGRESS NOTE ---
DATE: 06/15/2016 PRESENT ILLNESS: The patient was brought into the hospital with an altered mental status. He has a fungal urinary tract infection. Whether this is responsible for his altered mental status or is asymptomatic is uncertain to me. Patient also has a mild left leg cellulitis. MEDICATIONS: The patient currently is on Unasyn which should treat the patient' s leg cellulitis. PHYSICAL EXAMINATION: Vital Signs: Temperature is 97.7 degrees, pulse 66, respirations 18, blood pressure 101/57. Generally: This is an ill-appearing, middle-aged male who is in no acute distress. Lungs: Clear to auscultation. Cardiovascular: Irregular heart rate. Abdomen: Soft and nontender. A colostomy is in place. Neurologic: Patient is awake. He can move his extremities. There is no tremor. Chest: The patient has a right-sided tunneled dialysis catheter in place. The catheter site is not erythematous or swollen. Extremities: Patient has a right BKA. The left leg is swollen and slightly erythematous. LAB AND X-RAY: The patient's ultrasound shows a right renal atrophy. CT scan of the head showed atrophy and there is no acute disease. The patient's creatinine is 6. GFR is 10. Liver function studies are normal except for the alkaline phosphatase at 290 and the bilirubin at 1.62. Urinalysis showed white cells and yeast. ASSESSMENT AND PLAN: The patient may have a symptomatic fungal urinary tract infection. For this, I have added micafungin pending culture results. COMORBIDITIES: Include the following: End-stage renal disease with hemodialysis, chronic atrial fibrillation, diabetes mellitus, and a recent diagnosis of rectal cancer. [facility]
--- NOTE | 2016-06-15 13:04 | CONSULTATION ---
DATE OF CONSULTATION: 06/15/2016 REASON FOR CONSULTATION: Evaluation of possible myocardial infarction. CHIEF COMPLAINT: Altered mental status and weakness. HISTORY OF PRESENT ILLNESS: Mr. Garrison is a 66-year-old male who is brought to the emergency room from [facility] where he was staying at. He had been admitted to [facility] on 05/31/2016 and had been sent to [facility] on 06/08/2016 after 8 days of stay. At that time, he was released with a diagnosis of hypoglycemic coma, hyponatremia and end stage renal disease. At the [facility], according to the , he became disoriented. When they brought him to the emergency room, his blood pressure was low. There was a suspicion of septicemia. He has had previous infections in the leg and bladder. His urinalysis was abnormal. Chest x-ray was not done. They did a CT scan of the head that showed no changes. They did blood work which revealed elevation of the total CPK at 275 with an index of 3.65 and a troponin of 0.814. His troponin was actually 0.914 at first encounter and then 0.814. However, since 02/2016, his troponin levels have been 0.508, 0.487, 0.386 in 02/2016 and then in 04/2016 were 0.464, 0.494 and 0.488. Somehow the emergency room doctor thought that he was having some acute ST elevation myocardial infarction; however, that is not the case. His electrocardiogram looks similar to previous electrocardiograms that we have on record with intraventricular conduction delay, pseudo left bundle branch block type of pattern. At any rate, the patient has not complained of any chest pain. He has been admitted to the hospital and put on antibiotics. He is on micafungin for suspected urinary fungal infection and ampicillin as well as his usual home medications. The patient is not having chest pain. This morning he was still somewhat confused, although he was able to eat breakfast. He seems to be comfortable. He is undergoing hemodialysis. PAST MEDICAL HISTORY: Really significant for multiple hospital admissions. Since I saw him last time in the hospital back on 03/06/2016, he has been back in the hospital on , again on 04/29/2016 and then again 05/31/2016 and this last one on 06/14/2016. He is getting progressively weaker after each admission. The patient has history of severe coronary artery disease with congestive heart failure which is chronic and systolic. He has had progressive coronary artery disease. The only patent graft is the mammary artery graft to LAD. He has had urinary tract infections. He has peripheral occlusive arterial disease, diabetes mellitus and hypertension. He has also history of paroxysmal atrial fibrillation. PAST SURGICAL HISTORY: Right below-knee amputation, previous coronary bypass, cataract extraction, dialysis access. He has had a rectal tumor removed at [facility], I believe in 01/2016. SOCIAL HISTORY: He is and lives with . He is a former local delivery truck driver. He is not a smoker. FAMILY HISTORY: Positive for coronary artery disease. ALLERGIES: At the time of this admission included acetaminophen, hydrocodone, sulfamethoxazole. He is also allergic to Keflex and clindamycin. HOME MEDICATIONS: Tramadol, Brilinta 60 twice a day, omeprazole 20 mg daily, metoclopramide 10 mg 3 times a day, Synthroid 50 mcg daily, insulin Lispro 12 units 3 times a day , glargine Lantus 30 units at bedtime, gabapentin 300 at bedtime, colchicine 0.6 mg daily, carvedilol 3.125 twice a day, aspirin 81 mg daily, amitriptyline 50 mg at bedtime, atorvastatin 40 mg at bedtime. REVIEW OF SYSTEMS: Really noncontributory other than the fact that he is in very poor functional status. He is on dialysis 3 days a week. He basically is bedbound for the most part. He has really deteriorated severely lately, and his family is really considering Hospice care only and no more dialysis for him. PHYSICAL EXAMINATION: Blood pressure is 101/57, temperature 97.7, pulse 66, respirations 18. He is awake, chronically ill, in no distress. HEENT: Prominence of the jugular veins. Chest: Diminished breath sounds at the bases. Heart sounds are regular and rhythmic. I do not hear any definite gallop or murmur. They are distant. Abdomen is soft, nondistended. Extremities showed decreased pulses, no edema. Neurologic: Moves all 4 extremities, follows commands. He is pleasantly confused. DIAGNOSTIC DATA: His EKG today shows sinus rhythm with nonspecific interventricular conduction delay, pseudo left bundle branch block type of pattern. His urinalysis is abnormal with large amount of leukocyte and WBCs. IMPRESSION: 1. The patient presented with altered mental status, possibly septic. 2. History of long-term coronary artery disease with ischemic cardiomyopathy and chronic systolic heart failure. Patient has an abnormal 12 lead ECG that has not changed much. 3. [id number] myocardial infarction cannot be ruled out in this case. This is certainly a possibility and may relate to increased demand due to metabolic stress/ infection in a patient who has multiple coronary stenoses. 4. End stage renal disease on hemodialysis. 5. Very poor functional status, status post right below-knee amputation. 6. s/p recent surgical resection of rectal tumor at [facility]. RECOMMENDATIONS: I had a conversation with the patient's and the patient himself. The and the children feel very strongly about providing him with comfort measures only. They realize that he has not really made any progress with all of the care that has been provided over the past 3 or 4 months. They wish to take him home and get Hospice services to assist in the terminal part of his illness. At this point in time, I do not have any further recommendations to make. I believe the patient and the family are making the right decision. Please call me if you have any questions regarding this evaluation. MTDD
[2016-06-15] MEDS: ULTRAM PO SCH ×2 (13:19→22:11)
[2016-06-15] MEDS: TICAGRELOR PO SCH ×2 (13:20→22:19)
[2016-06-15] MEDS: COREG PO SCH ×3 (13:21→22:12)
[2016-06-15] MEDS: ASPIRIN EC PO SCH (13:21)
[2016-06-15] MEDS: AMPICILLIN IV SCH (13:22)
[2016-06-15] MEDS: SODIUM CHLORIDE IV SCH (13:22)
[2016-06-15] MEDS: SULBACTAM IV SCH (13:22)
[2016-06-15] MEDS: HUMALOG SUBQ SCH ×2 (13:23→17:55)
[2016-06-15] MEDS: MYCAMINE 100 MG in NS 100 ML IV SCH ×2 (14:18→17:40)
--- NOTE | 2016-06-15 16:10 | CONSULTATION ---
DATE OF CONSULTATION: 06/15/2016 REASON FOR ADMISSION: Altered mental status. REASON FOR CONSULTATION: Assist in medical management, end-stage renal disease on hemodialysis. CONSULTING PHYSICIAN: Gaurav Oleary MD HISTORY OF PRESENT ILLNESS: This is a 66-year-old gentleman, known to our service for end-stage renal disease on hemodialysis. He was recently in the hospital and was discharged to [facility]. While in the [facility] he was found to be hypotensive, bradycardic, and severely lethargic and sent to the emergency room here. On arrival to the emergency room he was hypotensive with blood pressures in the 80s, bradycardic. The patient has noted ST elevation in V1, V2, and V3 and for positive troponins; however, the family have requested that only conservative management be taken with this patient. We have been asked to see him to maintain his routine hemodialysis needs. This morning he is awake and alert. He denies pain and he is currently undergoing hemodialysis. PAST MEDICAL HISTORY: 1. End-stage renal disease. Hemodialysis Wednesday, Wednesday, and Wednesday. 2. Chronic systolic and diastolic congestive heart failure. 3. Ischemic cardiomyopathy. 4. Chronic atrial fibrillation. 5. Diabetes type 2. 6. Hypertension. 7. Dyslipidemia. 8. Osteoarthritis. 9. A recent diagnosis of rectal cancer. 10. Sleep apnea. SURGICAL HISTORY: He has had a partial colectomy and colostomy bag placement, right below the knee amputation, coronary bypass, cholecystectomy, amputations toes of left foot. He has a tunneled dialysis catheter to the right upper chest wall. ALLERGIES: [place], Bactrim, Keflex, and clindamycin. HOME MEDICATIONS: Neurontin, Elavil, aspirin, Coreg, Brilinta, Prilosec, Synthroid, Colcrys, Ultram, Reglan, Humalog, and Lantus. SOCIAL HISTORY: He is currently in rehabilitation. He is . No ETOH, tobacco, or illicit drug use. REVIEW OF SYSTEMS: Pertinent positives noted above. PHYSICAL EXAMINATION: Vital Signs: Temperature 97.7 degrees, pulse 66, respiratory rate 18, blood pressure 101/57. Intake 2.3 L, output 975 mL. Four hundred twenty-five of this was urine output. The other 500 was stool. HEENT: Normocephalic, atraumatic. Pupils equal, round, and reactive to light. Pale conjunctivae. Oral mucosa moist. Neck: Supple. There is trace jugular venous distention. No lymphadenopathy. Trachea midline. Cardiovascular: Regular rate and rhythm. No murmur or gallop appreciated. Pulmonary: He has equal excursion. He is clear bilaterally. No increased work of breathing. He remains on 2 L nasal cannula. Abdomen: Soft, positive bowel sounds. He has a colostomy bag noted. Genitourinary: He has a Claros catheter. Small amounts of urine. Extremities: He has a right below the knee amputation. He has 1+ pretibial edema to the left lower extremity. He has left greater than right swelling noted to the upper extremities. Integumentary: Skin is warm and dry without rash or lesion. He has a tunneled dialysis catheter noted to right upper chest wall with insertion site clean, dry, and intact and dressing in place. Neurological: Is awake, alert, and oriented x3 and is moving his extremities. Grossly nonfocal otherwise. LAB DATA: WBC of 6.5, hemoglobin 12.3. Sodium 122, potassium 6.2, CO2 18, BUN 44, creatinine 6.0. Urine with large leukocytes, 1+ protein. Toxicology screen negative. Head CT stable. Abdominal ultrasound right renal atrophy. Sluggish portal flow. Granulomata in liver and spleen. Right pleural effusion. No ascites. ASSESSMENT AND PLAN: 1. End-stage renal disease management. We will plan to dialyze him on a 0 K bath initially and then transition over to a 2 K bath. Ultrafiltration to dry weight four hour treatment. Plan to dialyze him only normal sodium and normal bicarb bath. 2. ST-elevation myocardial infarction. Followed by primary, being treated conservatively. 3. Urinary tract infection. On appropriately dosed antibiotics. Make no changes. 4. Fluid volume. He does have some edema noted. Will ultrafiltration of removal to dry weight today. 5. Hypotension, improved. 6. Electrolytes and acid-base balance. See above for plan. Seen, data reviewed, discussed with Abel Rodriguez on 06/15/15. I agree with the above assessment and plan of care. rg Dictated by LAVERNE Moran for Shane Medina MD [facility]
[2016-06-15] MEDS: NEURONTIN PO SCH (22:11)
[2016-06-15] MEDS: LIPITOR PO SCH (22:11)
[2016-06-15] MEDS: ELAVIL PO SCH (22:12)
[2016-06-15] MEDS: LANTUS SUBQ SCH (22:12)
[2016-06-15] MEDS: DILAUDID IV PRN (22:15)
[2016-06-16] MEDS: HUMALOG SUBQ SCH ×5 (01:57→21:11)
[2016-06-16] MEDS: DILAUDID IV PRN (02:00)
[2016-06-16] MEDS: REGLAN LIQUID PO SCH ×3 (06:17→16:18)
[2016-06-16 07:22] LABS: MANUAL DIFF NEEDED? NO
[2016-06-16 07:53] LABS: BASO% 0.4 % (0.0-0.8); EOS# 0.16 X1000 (0.0-0.7); EOS% 3.3 % (0.0-10.0); HEMATOCRIT 35.3 % (42.0-52.0); LYMPH# 0.84 X1000 (1.2-3.4); LYMPH% 17.4 % (20.5-51.1); MCH 32.1 PG (27-31); MCV 94.4 FL (81-99); MONO# 0.86 X1000 (0.11-0.59); MONO% 17.8 % (1.7-9.3); MPV 10.1 FL (7.4-10.4); NEUT% 61.1 % (42.2-75.2); PLT 112 X1000 (130-400); RBC 3.74 XMIL (4.7-6.1)
[2016-06-16 07:56] LABS: CALCIUM 8.7 mg/dL (8.8-10.2); POTASSIUM 4.2 mmol/L (3.5-5.1)
[2016-06-16] MEDS ORDERED: HEPARIN ONE (07:58)
[2016-06-16] MEDS ORDERED: NS 2,000 ML ONE (07:58)
[2016-06-16] MEDS: SYNTHROID PO SCH (10:04)
[2016-06-16] MEDS: COREG PO SCH ×2 (10:04→20:45)
[2016-06-16] MEDS: ASPIRIN EC PO SCH (10:04)
[2016-06-16] MEDS: ULTRAM PO SCH ×2 (10:04→20:45)
[2016-06-16] MEDS: AMPICILLIN IV SCH (10:05)
[2016-06-16] MEDS: SULBACTAM IV SCH (10:05)
[2016-06-16] MEDS: SODIUM CHLORIDE IV SCH (10:05)
[2016-06-16] MEDS: TICAGRELOR PO SCH ×2 (10:07→21:10)
[2016-06-16] MEDS ORDERED: D50W SYRINGE ONE (12:02)
[2016-06-16] MEDS: D50W SYRINGE IV PRN (12:08)
[2016-06-16] MEDS: MYCAMINE 100 MG in NS 100 ML IV SCH (16:16)
--- NOTE | 2016-06-16 16:46 | PROGRESS NOTE ---
DATE: 06/16/2016 PRESENT ILLNESS: The patient has a fungal urinary tract infection. He also has a mild left leg cellulitis. MEDICATIONS: This is day is day 2 of Unasyn and day 1 of micafungin. PHYSICAL EXAMINATION: Vital Signs: Temperature is 97.5 degrees, pulse 53, respirations 22, blood pressure 91/60. Generally: This is an ill-appearing middle-aged male who is in no acute distress. Lungs: Clear to auscultation. Cardiovascular: The patient's heart tones were hard for me to hear. At times it appeared to be regular and other times he appeared to have an irregular heart rate. Abdomen: Soft and nontender. Chest: The patient has a tunnelled dialysis catheter present on the right side. The site is not swollen or erythematous. Extremities: The left leg is less erythematous than it was yesterday. LAB AND X-RAY: No new x-ray. The patient has a CBC with a white count of 4840, hemoglobin 12 and platelet count 112,000. Creatinine is 4.6. GFR is 13. ASSESSMENT AND PLAN: The patient has a symptomatic fungal urinary tract infection for which micafungin was started. The patient's cellulitis of the leg is being treated Unasyn and it appears to be improved. COMORBIDITIES: Include end-stage renal disease, hemodialysis, chronic atrial fibrillation, diabetes mellitus, and rectal cancer.
[2016-06-16] MEDS ORDERED: INSULIN PEN NEEDLES ONE (17:01)
--- NOTE | 2016-06-16 17:24 | PROGRESS NOTE ---
DATE: 06/16/2016 SUBJECTIVE: Patient currently resting in bed. He has some confusion this morning. His son is at the bedside. OBJECTIVE: Vital Signs: Temperature 97.5, pulse 63, respiratory rate 22, blood pressure 91/60. Intake 440 mL, output 4.1 L on hemodialysis. General: This is an elderly gentleman resting in bed. He is awake and some confusion. HEENT: Normocephalic, atraumatic. TODD , conjunctivae pale. Oral mucosa moist. Neck: Supple. No JVD in recline position. Cardiovascular: Regular rate and rhythm. No murmur or gallop appreciated. Pulmonary: He has equal excursion. He is clear bilaterally. Abdomen: Soft with positive bowel sounds. : Not inspected. Extremities: Right BKA. Trace pretibial edema left. Moving upper extremities. : He has a Claros, colostomy bag. Integumentary: Skin is warm and dry. LABORATORY DATA: WBC of 4.8, hemoglobin 12, hematocrit 35.3, platelet count of 112. Sodium 130, potassium 4.2, CO2 of 20, BUN 30, creatinine 4.6, calcium 8.7. ASSESSMENT AND PLAN: 1. End-stage renal disease management. The patient dialyzes on a Wednesday, Wednesday, Wednesday schedule. We will keep him to that while he is in the hospital. Check labs in the morning. Determine dialysis bath. 2. Question of ST myocardial infarction, followed by primary and Cardiology. 3. Electrolytes, acid base balance, anemia. These are acceptable. Again, check labs in the morning. 4. Hypertension, improved. 5. Urinary tract infection. Continue current medications. Patient also is on micafungin for asymptomatic fungal urinary tract infection followed by Infectious Disease. Seen, data reviewed, discussed with Abel Rodriguez on 06/16/16. I agree with the above assessment and plan of care. rg Dictated by LAVERNE Moran for Shane Medina MD [facility]
[2016-06-16] MEDS: ELAVIL PO SCH (20:46)
[2016-06-16] MEDS: LIPITOR PO SCH (20:46)
[2016-06-16] MEDS: NEURONTIN PO SCH (20:46)
[2016-06-16] MEDS: LANTUS SUBQ SCH ×2 (21:11→21:15)
[2016-06-17] MEDS: HUMALOG SUBQ SCH (06:25)
[2016-06-17] MEDS: SYNTHROID PO SCH (06:28)
[2016-06-17] MEDS: REGLAN LIQUID PO SCH (06:28)
[2016-06-17 07:07] LABS: MANUAL DIFF NEEDED? NO
--- NOTE | 2016-06-17 07:09 | DISCHARGE SUMMARY ---
ADMISSION DATE: 06/13/2016 DISCHARGE DATE: 06/17/2016 DISCHARGE DIAGNOSES: 1. ST elevation myocardial infarction. 2. Urinary tract infection. 3. Chronic diastolic and systolic congestive heart failure. 4. Hypertension. 5. Type 2 diabetes mellitus. 6. End-stage renal disease. 7. Chronic hyponatremia. HOSPITAL COURSE: Mr. Garrison is a 66-year-old gentleman who has extensive past medical history of coronary artery disease with ischemic cardiomyopathy and congestive heart failure along with atrial fibrillation. He also has diabetes and end-stage renal disease along with hypertension and chronic hyponatremia. He was reported to have confusion and hypotension along with bradycardia after which he was brought into the hospital. He was noted to have ST elevation in V1 through V3 along with positive troponins. He was diagnosed as having acute myocardial infarction but, because of his overall condition, conservative management was provided. Cardiology, Nephrology and Infectious Disease consultations were obtained during this hospital admission. The patient's condition has been very complex and very little could be offered and, therefore, a Palliative Care consultation was obtained. It was deemed that the patient could be a very good candidate for hospice and, therefore, hospice was consulted. We think that the patient needs comfort care as far as his coronary artery disease and ischemic cardiomyopathy along where other cardiac conditions are concerned. The patient has agreed to that and, therefore, we are going to discharge him home on hospice for his heart condition. The patient has been having recurrent urinary tract infection for which we put him on Unasyn because he has grown Proteus mirabilis in the past. Infectious Disease service was involved in the care of this patient, as mentioned above, and Dr. Millard agreed with that and added micafungin to his antibiotics. The culture has not grown any bacteria so far and, therefore, I am going to discontinue his antibiotics. His overall condition has been stable and, therefore, we are going to discharge him home on hospice. He will continue with hemodialysis as per Dr. Medina 3 times a week. DISCHARGE MEDICATIONS: 1. Atorvastatin 40 mg orally once daily at bedtime. 2. Amitriptyline 50 mg orally once daily at bedtime. 3. Aspirin 81 mg orally once daily. 4. Carvedilol 3.125 mg orally twice daily. 5. Gabapentin 300 mg orally once daily at bedtime. 6. Lantus insulin 30 units subcutaneously once every 24 hours. 7. Lispro insulin 6 units subcutaneously 3 times a day with meals as directed. 8. Levothyroxine 50 mcg orally once daily. 9. Metoclopramide 10 mg orally 3 times a day 30 minutes prior to meals. 10. Brilinta 60 mg orally twice daily. 11. Tramadol 50 mg orally twice daily for pain. 12. Colchicine 0.6 mg orally once daily. 13. Omeprazole 20 mg orally once daily in the morning. FOLLOWUP: He will follow up with me at the office in approximately 7-10 days. He will continue his hemodialysis, as per Dr. Medina, 3 times a week and will also be seen by Hospice. CONDITION: Stable. DISPOSITION: Home with hospice care. TIME SPENT: A total of more than 40 minutes were spent during the discharge process. KARYN
[2016-06-17 07:23] LABS: BASO% 0.2 % (0.0-0.8); EOS# 0.13 X1000 (0.0-0.7); EOS% 2.3 % (0.0-10.0); HEMATOCRIT 35.7 % (42.0-52.0); HEMOGLOBIN 12.2 g/dL (14.0-18.0); LYMPH# 0.85 X1000 (1.2-3.4); LYMPH% 15.1 % (20.5-51.1); MCH 32.3 PG (27-31); MCHC 34.2 g/dL (33-37); MCV 94.4 FL (81-99); MONO# 0.82 X1000 (0.11-0.59); MONO% 14.6 % (1.7-9.3); MPV 10.7 FL (7.4-10.4); NEUT% 67.8 % (42.2-75.2); PLT 118 X1000 (130-400); RBC 3.78 XMIL (4.7-6.1)
[2016-06-17 07:30] VITALS: BP 87/59
[2016-06-17] MEDS ORDERED: NS 2,000 ML ONE (07:35)
[2016-06-17 07:36] LABS: CALCIUM 8.5 mg/dL (8.8-10.2); POTASSIUM 5.2 mmol/L (3.5-5.1)
[2016-06-17] MEDS ORDERED: NS 2,000 ML MISC PRN (07:58)
[2016-06-17] MEDS ORDERED: HEPARIN IV PRN (07:58)
[2016-06-17] MEDS ORDERED: TIGHT: 0.2 ML/HR MISC PRN (07:58)
--- NOTE | 2016-06-17 11:40 | PROGRESS NOTE ---
DATE: 06/17/2016 TIME SEEN: 0800. SUBJECTIVE: Patient currently resting in bed, undergoing hemodialysis. He is awake and alert. He denies any chest pain or shortness of breath. OBJECTIVE: Vital signs: Temperature 97.7 degrees, pulse 86, respiratory rate 20, blood pressure 87/59. Intake and output: Intake 600 mL. Output 325 mL. General: Elderly gentleman, resting in bed. He is awake, alert, oriented times person and place. HEENT: Normocephalic, atraumatic. TODD. Oral mucosa moist. Neck: Supple. There is no JVD in a sitting position. Cardiovascular: Reveals regular rate and rhythm. There is no murmur or gallop appreciated on exam. Pulmonary: He has equal excursion. He has no increased work of breathing. He is clear bilaterally, on room air. Abdomen: Soft, positive. : Not inspected. Extremities: He has a right BKA. He has scant trace pretibial edema to the left lower extremity. He is moving his upper extremities. Integumentary: Skin is warm and dry. He has a tunneled dialysis catheter noted right upper chest wall with insertion site clean, dry, and intact. LAB DATA: WBC of 5.6, hemoglobin 12.2. Sodium 124, potassium 5.2, CO2 20, BUN 37, creatinine 5.5, calcium 8.5. ASSESSMENT AND PLAN: 1. End-stage renal disease management. Today is his routine dialysis day. He is on a 2 K bath/UF to dry weight/four hour treatment. 2. Electrolytes, acid-base balance, anemia. These are acceptable and are addressed on dialysis. 3. Hypertension. Controlled. 4. Urinary tract infection. On appropriate medications. 5. AMI. conservative care. rg DISPOSITION: We understand that he will likely be discharged back to rehab today. Continue follow up as an outpatient. Seen, data reviewed, discussed with Abel Rodriguez on 06/17/16. I agree with the above assessment and plan of care. rg Dictated by LAVERNE Moran for Shane Medina MD [facility]
[2016-06-17] MEDS: ULTRAM PO SCH (12:35)
[2016-06-17] MEDS: ASPIRIN EC PO SCH (12:36)
[2016-06-17] MEDS: TICAGRELOR PO SCH (12:36)
== END 2016-06-17 13:34 | disposition hospice, home (50) | DRG 280 ==
LOC: ED 15:38 → 3N 21:52
PROVIDERS: ADMIT Internal Medicine; ATTEND Internal Medicine
PROC: 5A1D60Z (ICD-10-PCS; principal; 2016-06-15)
DX: I21.4 Non-ST elevation (NSTEMI) myocardial infarction (principal); N18.6 End stage renal disease; I13.2 Hypertensive heart and chronic kidney disease with heart failure and with stage 5 chronic kidney disease, or end stage renal disease; I95.9 Hypotension, unspecified; E11.22 Type 2 diabetes mellitus with diabetic chronic kidney disease; L03.116 Cellulitis of left lower limb; I11.0 Hypertensive heart disease with heart failure; I50.42 Chronic combined systolic (congestive) and diastolic (congestive) heart failure; E87.1 Hypo-osmolality and hyponatremia; B37.49 Other urogenital candidiasis; E11.51 Type 2 diabetes mellitus with diabetic peripheral angiopathy without gangrene; I48.2 Chronic atrial fibrillation; I25.5 Ischemic cardiomyopathy; E78.5 Hyperlipidemia, unspecified; M19.90 Unspecified osteoarthritis, unspecified site; G47.30 Sleep apnea, unspecified; D64.9 Anemia, unspecified; E11.40 Type 2 diabetes mellitus with diabetic neuropathy, unspecified; K21.9 Gastro-esophageal reflux disease without esophagitis; I25.10 Atherosclerotic heart disease of native coronary artery without angina pectoris; Z99.2 Dependence on renal dialysis; Z82.49 Family history of ischemic heart disease and other diseases of the circulatory system; Z89.511 Acquired absence of right leg below knee; Z95.1 Presence of aortocoronary bypass graft; Z93.3 Colostomy status; Z80.0 Family history of malignant neoplasm of digestive organs; Z66 Do not resuscitate; Z74.01 Bed confinement status; Z79.82 Long term (current) use of aspirin; Z79.899 Other long term (current) drug therapy; Z79.4 Long term (current) use of insulin; Z85.048 Personal history of other malignant neoplasm of rectum, rectosigmoid junction, and anus
CPT/HCPCS: 70450; 76700; 80048; 80053; 81001; 82550; 82553; 82805; 82948; 83605; 83735; 84484; 85025; 85610; 85730; 87040; 87077; 87088; 93005; 96365; 96366; 96375; G0480; J0295; J0461; J1170; J1644; J1815; J2248; J7030; 80320; 80324; 80345; 80346; 80349; 80353; 80358; 80361; 80365; 83992